=== PATIENT | female | born 1945 | race Caucasian/White ===

== ENCOUNTER 2016-10-04 14:18 | Emergency (ER) | payer MEDICARE ==
[~2016-10-04] VITALS: Ht 157.5 cm; Wt 46.4 kg
[~2016-10-04 14:18] MED LIST: AMBI5TAB PO; DICY1TAB26 PO; METO50CR PO; RALO1TAB PO; SUCR1TAB PO; SUMA25; ZANT300T PO; ZOFR4TAB3 SL
[2016-10-04 14:41] VITALS: BP 119/72; PULSE 88; RESP 16; TEMP 99; O2SAT 100
[2016-10-04] MEDS ORDERED: METO50TA11 PO (14:52)
[2016-10-04] MEDS ORDERED: RALO1TAB PO (14:52)
[2016-10-04] MEDS ORDERED: OMEP20TA PO (14:52)
[2016-10-04] MEDS ORDERED: SODIUM CHLOR 0.9% 1000 ML INJ 1,000 ML IV ONE (14:58)
[2016-10-04] MEDS ORDERED: ONDANSETRON HCL 4 MG/2 ML VIAL IVP ONE (15:00)
[2016-10-04] MEDS: SODIUM CHLORIDE 0.9% FLUSH 10 ML FLUSH IVF PRN ×2 (15:20→16:19)
[2016-10-04 15:22] LABS: BLOOD, URINE TRACE (NEG); GLUCOSE,URINE NEG (NEG); KETONE, URINE NEG (NEG); NITRITE,URINE NEG (NEG); PH, URINE 5.5 (5.0-8.5)
[2016-10-04 15:29] LABS: METHOD OF COLLECTION CLEAN CATCH; URINE COLOR YELLOW (YELLW/STRAW)
[2016-10-04 15:30] LABS: RBC, URINE 0-3 /hpf (0-3); WBC, URINE 0-2 /hpf (0-5)
[2016-10-04 15:31] LABS: COMMENT (UR) CULT NOT INDICATED; CULTURE IF INDICATED CULT NOT INDICATED
[2016-10-04 15:35] LABS: POTASSIUM 3.6 MEQ/L (3.5-5.1)
[2016-10-04 15:37] LABS: BICARBONATE 27.8 MEQ/L (21.0-32.0)
[2016-10-04] MEDS ORDERED: ZOFR4TAB3 SL (16:04)
--- NOTE | 2016-10-04 16:04 | PD ---
HPI . Diarrhea and vomiting Chief Complaint: Cold / Flu Symptoms Time Seen by Provider: 14:58 Travel History International Travel<30 days: No Contact w/Intl Traveler<30days: No Traveled to known affect area: No History of Present Illness HPI Patient presents with the acute onset of diarrhea followed by vomiting. This started today. She denies abdominal pain. She denies fever. She denies urinary tract symptoms. [id number]: GI system DURATION: Less than 12 hours TIMING: Started with diarrhea followed by vomiting ASSOCIATED SYMPTOMS: No associated fever, pain or urinary tract symptoms PFSH Past Medical History Heart Rhythm Problems: Yes (palpitations,pvc's,psvt's) Cardiovascular Problems: Yes (PALPITATION) Diabetes: No Endocrine: No Gastrointestinal Disorders: Yes (ABDOMINAL PAIN ,IBS) GERD: Yes (acid reflux) Genitourinary: Yes Hepatitis: No Hiatal Hernia: No Hypertension: No Immune Disorder: No Kidney Stones: Yes Musculoskeletal: No Neurologic: No Psychiatric: No Reproductive: No Respiratory: Yes (SOB AMBULATING.) Thyroid Disease: No Influenza Vaccination: Yes ?: Not Menopausal: Yes : 1 Para: 1 Past Surgical History Abdominal Surgery: Yes (COLONOSCOPY,CHOLECYSTOMY) Appendectomy: Yes Cardiac Surgery: No Section: Yes (x1) Cholecystectomy: Yes Ear Surgery: No Endocrine Surgery: No Eye Surgery: No Genitourinary Surgery: Yes Gynecologic Surgery: No Pacemaker: No Thoracic Surgery: No Tonsillectomy: Yes Other Surgery: Yes Social History Alcohol Use: Yes (occas. wine) Tobacco Use: No Substance Use: No Allergies-Medications (Allergen,Severity, Reaction): Coded Allergies: Epinephrine (Unverified Allergy, Severe, SEIZURES, 10/04/16) Lidocaine (Unverified Allergy, Intermediate, severe palpitations/anxiety, 10/09/14) Percocet (Verified Allergy, Mild, FEELING OF RACING, 10/04/16) Uncoded Allergies: septocane (Allergy, Severe, severe palitations/anxiety, 10/09/14) Reported Meds & Prescriptions Reported Meds & Active Scripts Active Zofran Odt (Ondansetron Odt) 4 Mg Tab 4 Mg SL Q6HR PRN Reported Omeprazole 20 Mg Tab 20 Mg PO DAILY Raloxifene (Raloxifene HCl) 60 Mg Tab 60 Mg PO DAILY Metoprolol Succinate ER 24 HR (Metoprolol Succinate) 50 Mg Tab 50 Mg PO DAILY Review of Systems Except as stated in HPI: all other systems reviewed are Neg General / Constitutional: No: Fever, Chills Gastrointestinal: Positive: Nausea, Vomiting, Diarrhea, No: Abdominal Pain Genitourinary: No: Urgency, Frequency, Dysuria Physical Exam Narrative GENERAL: Healthy-appearing woman in no acute distress. SKIN: Warm and dry. Good turgor. HEAD: Atraumatic. Normocephalic. EYES: Pupils equal and round. Extraocular movements are intact. ENT: No nasal bleeding or discharge. Mucous membranes pink and moist. NECK: Trachea midline. Neck is supple. CARDIOVASCULAR: Regular rate and rhythm. Heart sounds are normal. RESPIRATORY: No accessory muscle use. Lungs are clear with full air movement throughout. GASTROINTESTINAL: Abdomen soft, non-tender, nondistended. MUSCULOSKELETAL: No obvious deformities. No edema. NEUROLOGICAL: Awake and alert. No obvious cranial nerve deficits. Motor grossly within normal limits. Normal speech. PSYCHIATRIC: Appropriate mood and affect; insight and judgment normal. Data Data Last Documented VS Vital Signs Date Time Temp Pulse Resp B/P Pulse Ox O2 Delivery O2 Flow Rate FiO2 10/04/16 16:47 84 18 117/63 97 Room Air 10/04/16 14:41 99.0 Orders Complete Blood Count With Diff (10/04/16 14:58) Basic Metabolic Panel (Bmp) (10/04/16 14:58) Urinalysis - C+S If Indicated (10/04/16 14:58) Iv Access Insert/Monitor (10/04/16 14:58) Ondansetron Inj (Zofran Inj) (10/04/16 15:00) Sodium Chlor 0.9% 1000 Ml Inj (Ns 1000 M (10/04/16 14:58) Sodium Chloride 0.9% Flush (Ns Flush) (10/04/16 15:00) Ct Abd/Pel W/O Iv Contrast (10/04/16 16:06) Morphine Inj (Morphine Inj) (10/04/16 16:15) Labs Laboratory Tests Test 10/04/16 10/04/16 15:10 15:14 Urine Collection Type CLEAN CATCH Urine Color YELLOW Urine Turbidity CLEAR Urine pH 5.5 Urine Specific [place] 1.022 Urine Protein NEG mg/dL Urine Glucose (UA) NEG mg/dL Urine Ketones NEG mg/dL Urine Occult Blood TRACE Urine Nitrite NEG Urine Bilirubin NEG Urine Leukocyte Esterase TRACE Urine RBC 0-3 /hpf Urine WBC 0-2 /hpf Urine Squamous Epithelial 6-8 /hpf Cells Microscopic Urinalysis Comment CULT NOT INDICATED Urine Collection Time 15:10 White Blood Count 6.6 TH/MM3 Red Blood Count 4.55 MIL/MM3 Hemoglobin 12.8 GM/DL Hematocrit 39.2 % Mean Corpuscular Volume 86.0 FL Mean Corpuscular Hemoglobin 28.0 PG Mean Corpuscular Hemoglobin 32.5 % Concent Red Cell Distribution Width 14.4 % Platelet Count 158 TH/MM3 Mean Platelet Volume 9.3 FL Neutrophils (%) (Auto) 96.1 % Lymphocytes (%) (Auto) 3.4 % Monocytes (%) (Auto) 0.1 % Eosinophils (%) (Auto) 0.2 % Basophils (%) (Auto) 0.2 % Neutrophils # (Auto) 6.4 TH/MM3 Lymphocytes # (Auto) 0.2 TH/MM3 Monocytes # (Auto) 0.0 TH/MM3 Eosinophils # (Auto) 0.0 TH/MM3 Basophils # (Auto) 0.0 TH/MM3 CBC Comment DIFF FINAL Differential Comment Sodium Level 140 MEQ/L Potassium Level 3.6 MEQ/L Chloride Level 103 MEQ/L Carbon Dioxide Level 27.8 MEQ/L Anion Gap 9 MEQ/L Blood Urea Nitrogen 19 MG/DL Creatinine 0.68 MG/DL Estimat Glomerular Filtration 86 ML/MIN Rate Random Glucose 119 MG/DL Calcium Level 8.7 MG/DL [facility] Medical Decision Making Medical Screen Exam Complete: Yes Emergency Medical Condition: Yes Differential Diagnosis Differential diagnosis includes but is not limited to viral gastritis, food poisoning, pancreatitis, pneumonia, hepatitis, acute coronary syndrome, Narrative Course Patient presents with diarrhea followed by vomiting. Onset was today. She appears well-hydrated. 4:08 PM I went back to check on the patient and she now complains of the onset of left flank pain. I have ordered a CT of her abdomen to look for kidney stone. CT scan was negative. Diagnosis Primary Impression: Gastroenteritis Additional Impression: Left flank pain Referrals: JANA MENESES M.D. (PCP) call for appointment Patient Instructions: Gastroenteritis (DC), General Instructions Departure Forms: Tests/Procedures Med/Other Pt SpecificInfo: Prescription(s) given Scripts Ondansetron Odt (Zofran Odt)4 Mg Tab4 Mg SL Q6HR PRN (Nausea/Vomiting) #30 TAB Ref 0 Prov:Jordana Albarado MD 10/04/16 Disposition: 01 DISCHARGE HOME Condition: Stable Jordana Albarado MD Oct 04, 2016 16:04
[2016-10-04] MEDS ORDERED: MORPHINE SULFATE 4 MG/ML INJ IV ONE (16:15)
[2016-10-04 16:35] LABS: AUTOMATED NEUTROPHIL # 6.4 TH/MM3 (1.8-7.7); BASOPHIL % 0.2 % (0.0-2.0); EOSINOPHIL % 0.2 % (0.0-4.0); HEMATOCRIT 39.2 % (35.0-46.0); HEMO FLAGS DIFF FINAL; LYMPH % 3.4 % (9.0-44.0); LYMPHOCYTE # 0.2 TH/MM3 (1.0-4.8); MEAN CORPUSCULAR HGB CONC 32.5 % (32.0-36.0); MONO % 0.1 % (0.0-8.0); NEUT % 96.1 % (16.0-70.0); PLATELET COUNT 158 TH/MM3 (150-450); RED BLOOD COUNT 4.55 MIL/MM3 (4.00-5.30); RED CELL DISTRIBUTION WIDTH 14.4 % (11.6-17.2); WHITE BLOOD COUNT 6.6 TH/MM3 (4.0-11.0)
--- NOTE | 2016-10-04 16:44 | RADHPO ---
EXAM DATE/TIME: 10/04/2016 16:19 [facility] COMPARISON: No previous studies available for comparison. INDICATIONS : Left flank pain. ORAL CONTRAST: No oral contrast ingested. RADIATION DOSE: 4.86 CTDIvol (mGy) MEDICAL HISTORY : Renal calculi. SURGICAL HISTORY : Appendectomy. Cholecystectomy. section.Tonsillectomy ENCOUNTER: Initial ACUITY: 1 month PAIN SCALE: 6/10 LOCATION: Left flank TECHNIQUE: Volumetric scanning of the abdomen and pelvis was performed. Using automated exposure control and ad justment of the mA and/or kV according to patient size, radiation dose was kept as low as reasonably achievable to obtain optimal diagnostic quality images. FINDINGS: LOWER LUNGS: The visualized lower lungs are clear. LIVER: Homogeneous density without lesion. There is no dilation of the biliary tree. Prior cholecystectomy. SPLEEN: Normal size without lesion. PANCREAS: Within normal limits. KIDNEYS: Normal in size and shape. There is no mass, stone, or hydronephrosis. ADRENAL GLANDS: Within normal limits. VASCULAR: There is no aortic aneurysm. BOWEL/MESENTERY: The stomach, small bowel, and colon demonstrate no acute abnormality. There is no free intraperitone al air or fluid. ABDOMINAL WALL: Within normal limits. RETROPERITONEUM: There is no lymphadenopathy. BLADDER: No wall thickening or mass. REPRODUCTIVE: Within normal limits. INGUINAL: There is no lymphadenopathy or hernia. MUSCULOSKELETAL: Within normal limits for patient age. CONCLUSION: Normal examination. Roney Nichole Jr., MD on October 04, 2016 at 16:34 Board Certified Radiologist. This report was verified electronically.
[2016-10-04 16:47] VITALS: BP 117/63; PULSE 84; RESP 18; O2SAT 97
== END 2016-10-04 17:13 | disposition home or self-care (01) ==
LOC: PHED 14:18
DX: K52.9 Noninfective gastroenteritis and colitis, unspecified (principal)
CPT/HCPCS: 74176; 80048; 81001; 85025; 96361; 96374; 96375; 99284; J2270; J2405; J7030

== ENCOUNTER → 2016-10-18 | Outpatient (CLI) | payer MEDICARE ==
[~2016-10-18] MED LIST changes: -AMBI5TAB PO; -DICY1TAB26 PO; -METO50CR PO; +METO50TA11 PO; +OMEP20TA PO; -SUCR1TAB PO; -SUMA25; -ZANT300T PO
[2016-10-18 09:53] LABS: ALKALINE PHOSPHATASE 82 U/L (45-117); ALT (GPT) 15 U/L (10-53); ANION GAP 5 MEQ/L (5-15); AST (GOT) 19 U/L (15-37); BICARBONATE 32.4 MEQ/L (21.0-32.0); BLOOD UREA NITROGEN 13 MG/DL (7-18); CHLORIDE 103 MEQ/L (98-107); GLOMERULAR FILTRATION RATE 93 ML/MIN (>89); GLUCOSE,FASTING 83 MG/DL (74-99); HDL CHOLESTEROL 69.2 MG/DL (40.0-60.0); LDL CHOLESTEROL 98 MG/DL (0-99); POTASSIUM 4.6 MEQ/L (3.5-5.1); SODIUM (NA) 140 MEQ/L (136-145); TOTAL BILIRUBIN ADULT 0.4 MG/DL (0.2-1.0)
== END ==
LOC: PLAB 07:07
PROVIDERS: ATTEND Family Medicine
DX: Z00.00 Encounter for general adult medical examination without abnormal findings (principal); E55.9 Vitamin D deficiency, unspecified; R73.09 Other abnormal glucose; Z13.6 Encounter for screening for cardiovascular disorders; R10.9 Unspecified abdominal pain; R03.0 Elevated blood-pressure reading, without diagnosis of hypertension
CPT/HCPCS: 36415; 80053; 80061; 82306

== ENCOUNTER 2017-04-09 20:25 | Observation (INO) | payer MEDICARE ==
[~2017-04-09] VITALS: Ht 157.5 cm; Wt 48.9 kg
[~2017-04-09 20:25] MED LIST changes: +PROPOFOL 200 MG/20 ML AMP IV ONE
[2017-04-09 20:39] VITALS: BP 142/66; PULSE 83; RESP 20; TEMP 98.2; O2SAT 99
[2017-04-09] MEDS ORDERED: SODIUM CHLORIDE 0.9% FLUSH 10 ML FLUSH IVF PRN ×2 (21:00→23:00)
[2017-04-09] MEDS ORDERED: METOCLOPRAMIDE HCL 10 MG/2 ML VIAL IV PUSH ONE (21:00)
--- NOTE | 2017-04-09 21:06 | PD ---
HPI Chief Complaint: Pain: Acute or Chronic Time Seen by Provider: 20:52 Travel History International Travel<30 days: No Contact w/Intl Traveler<30days: No Traveled to known affect area: No History of Present Illness HPI 71-year-old female presents to the emergency department for complaint of nausea and regurgitation with mid retrosternal chest pain. Patient states this afternoon while preparing to go to dinner she noticed some discomfort in her chest and mild eating a small amount at dinner started noticing increasing pain develop nausea and vomited recently ingested food. Patient continues to have sensation of needing to vomit or regurgitate. Patient continues to have ongoing abdominal pain and chest pain. Patient reports that she underwent endoscopy [address] Yee requiring esophageal stricture dilatation. Patient has done well since that time. Patient's had no recent weight loss. Patient does have history of palpitations/SVT for which she is prescribed metoprolol has had no issues with this recently. Patient rates discomfort as moderate previously was severe. No referred neck jaw back shoulder arm pain. No shortness of breath no sweats. No hematemesis no coffee-ground emesis. No generalized abdominal pain. No flank pain or mid sternal pain. Patient has ability to swallow saliva. PFSH Past Medical History Narrative Medical Esophageal stricture with dilatation, irritable bowel syndrome, GERD, palpitations/SVT, kidney stones; appendectomy cholecystectomy melanoma excision tonsillectomy colonoscopy and upper endoscopy; no tobacco use occasional alcohol use or nursing notes reviewed Heart Rhythm Problems: Yes (palpitations,pvc's,psvt's) Cardiovascular Problems: Yes Diabetes: No Endocrine: No Gastrointestinal Disorders: Yes (ABDOMINAL PAIN ,IBS) GERD: Yes (acid reflux) Genitourinary: Yes Hepatitis: No Hiatal Hernia: No Hypertension: No Immune Disorder: No Kidney Stones: Yes Musculoskeletal: No Neurologic: No Psychiatric: No Reproductive: No Respiratory: Yes (SOB AMBULATING.) Thyroid Disease: No Menopausal: Yes : 1 Para: 1 Past Surgical History Abdominal Surgery: Yes (COLONOSCOPY,CHOLECYSTOMY) Appendectomy: Yes Cardiac Surgery: No Section: Yes (x1) Cholecystectomy: Yes Ear Surgery: No Endocrine Surgery: No Eye Surgery: No Genitourinary Surgery: Yes Gynecologic Surgery: No Pacemaker: No Thoracic Surgery: No Tonsillectomy: Yes Other Surgery: Yes Social History Alcohol Use: Yes (occas. wine) Tobacco Use: No Substance Use: No Allergies-Medications (Allergen,Severity, Reaction): Coded Allergies: epinephrine (Unverified Allergy, Severe, SEIZURES, 04/09/17) lidocaine (Unverified Allergy, Intermediate, severe palpitations/anxiety, 04/09/17) acetaminophen (Unverified Allergy, Mild, FEELING OF RACING, 04/09/17) oxycodone (Unverified Allergy, Mild, FEELING OF RACING, 04/09/17) Uncoded Allergies: septocane (Allergy, Severe, severe palitations/anxiety, 10/09/14) Reported Meds & Prescriptions Reported Meds & Active Scripts Active Zofran Odt (Ondansetron Odt) 4 Mg Tab 4 Mg SL Q6HR PRN Reported Omeprazole 20 Mg Tab 20 Mg PO DAILY Raloxifene (Raloxifene HCl) 60 Mg Tab 60 Mg PO DAILY Metoprolol Succinate ER 24 HR (Metoprolol Succinate) 50 Mg Tab 50 Mg PO DAILY Review of Systems Except as stated in HPI: all other systems reviewed are Neg General / Constitutional: No: Fever, Chills HENT: No: Congestion Cardiovascular: Positive: Chest Pain or Discomfort, Dyspnea on exertion, No: Diaphoresis, Syncope Respiratory: No: Cough, Shortness of Breath, Wheezing Gastrointestinal: Positive: Nausea, Vomiting, Abdominal Pain (epigastric), No: Diarrhea Genitourinary: No: Flank Pain Musculoskeletal: No: Pain Skin: No Rash Neurologic: No: Weakness Psychiatric: Positive: Anxiety (acetaminophen every) Endocrine: No: Heat Intolerance Hematologic/Lymphatic: No: Easy Bruising Physical Exam Narrative GENERAL: An elderly female in no acute respiratory distress with intermittent retching SKIN: Warm and dry. HEAD: Normocephalic. EYES: No scleral icterus. No injection or drainage. NECK: Supple, trachea midline. No JVD or lymphadenopathy. CARDIOVASCULAR: Regular rate and rhythm without murmurs, gallops, or rubs. RESPIRATORY: Breath sounds equal bilaterally. No accessory muscle use. GASTROINTESTINAL: Abdomen soft, non-tender, nondistended. MUSCULOSKELETAL: No cyanosis, or edema. BACK: Nontender without obvious deformity. No CVA tenderness. Data Data Last Documented VS Vital Signs Date Time Temp Pulse Resp B/P (MAP) Pulse Ox O2 Delivery O2 Flow Rate FiO2 04/09/17 21:25 87 18 160/78 (105) 99 Room Air 04/09/17 20:39 98.2 Orders Orders Complete Blood Count With Diff (04/09/17 20:56) Basic Metabolic Panel (Bmp) (04/09/17 20:56) Act Partial Throm Time (Ptt) (04/09/17 20:56) Prothrombin Time / Inr (Pt) (04/09/17 20:56) Troponin I (04/09/17 20:56) Iv Access Insert/Monitor (04/09/17 20:56) Electrocardiogram (04/09/17 20:56) Ecg Monitoring (04/09/17 20:56) Oximetry (04/09/17 20:56) Oxygen Administration (04/09/17 20:56) Chest, Single Ap (04/09/17 20:56) Sodium Chloride 0.9% Flush (Ns Flush) (04/09/17 21:00) Metoclopramide Inj (Reglan Inj) (04/09/17 21:00) Sodium Chlor 0.9% 1000 Ml Inj (Ns 1000 M (04/09/17 21:00) Labs Laboratory Tests Test 04/09/17 21:30 White Blood Count 4.8 TH/MM3 Red Blood Count 4.28 MIL/MM3 Hemoglobin 11.9 GM/DL Hematocrit 36.3 % Mean Corpuscular Volume 84.7 FL Mean Corpuscular Hemoglobin 27.9 PG Mean Corpuscular Hemoglobin Concent 32.9 % Red Cell Distribution Width 13.6 % Platelet Count 177 TH/MM3 Mean Platelet Volume 8.5 FL Neutrophils (%) (Auto) 59.8 % Lymphocytes (%) (Auto) 32.5 % Monocytes (%) (Auto) 5.7 % Eosinophils (%) (Auto) 1.1 % Basophils (%) (Auto) 0.9 % Neutrophils # (Auto) 2.8 TH/MM3 Lymphocytes # (Auto) 1.6 TH/MM3 Monocytes # (Auto) 0.3 TH/MM3 Eosinophils # (Auto) 0.1 TH/MM3 Basophils # (Auto) 0.0 TH/MM3 CBC Comment DIFF FINAL Differential Comment MDM Medical Decision Making Medical Screen Exam Complete: Yes Emergency Medical Condition: Yes Medical Record Reviewed: Yes Differential Diagnosis Esophageal stricture, retained fluid bolus, chest pain, ACS, VT, pancreatitis, peptic ulcer disease, viscus perforation unlikely Boerhaave's consider [facility]- [place] Narrative Course Patient placed on monitor pulse oximetry IV access obtained resulting EKG performed sinus rhythm rate of [address] elevation or injury pattern change noted marked baseline artifact present Patient administered Reglan 5 mg IV and maintenance normal saline at 100 cc per hour @ 21:50 asymptomatic Physician Communication Physician Communication call placed to GI Diagnosis Primary Impression: Retching Additional Impression: History of esophageal stricture Damaris Maldonado MD Apr 09, 2017 21:06
[2017-04-09 21:25] VITALS: BP 160/78; PULSE 87; RESP 18; O2SAT 99
[2017-04-09] MEDS: SODIUM CHLOR 0.9% 1000 ML INJ 1,000 ML IV SCH (21:38)
[2017-04-09 21:45] LABS: AUTOMATED NEUTROPHIL # 2.8 TH/MM3 (1.8-7.7); BASOPHIL % 0.9 % (0.0-2.0); EOSINOPHIL # 0.1 TH/MM3 (0-0.4); EOSINOPHIL % 1.1 % (0.0-4.0); HEMATOCRIT 36.3 % (35.0-46.0); HEMO FLAGS DIFF FINAL; LYMPH % 32.5 % (9.0-44.0); LYMPHOCYTE # 1.6 TH/MM3 (1.0-4.8); MEAN CELL VOLUME 84.7 FL (80.0-100.0); MEAN CORPUSCULAR HEMOGLOBIN 27.9 PG (27.0-34.0); MEAN CORPUSCULAR HGB CONC 32.9 % (32.0-36.0); MONO % 5.7 % (0.0-8.0); NEUT % 59.8 % (16.0-70.0); PLATELET COUNT 177 TH/MM3 (150-450); RED BLOOD COUNT 4.28 MIL/MM3 (4.00-5.30); RED CELL DISTRIBUTION WIDTH 13.6 % (11.6-17.2); WHITE BLOOD COUNT 4.8 TH/MM3 (4.0-11.0)
[2017-04-09 21:54] LABS: CHLORIDE 104 MEQ/L (98-107); POTASSIUM 3.1 MEQ/L (3.5-5.1); SODIUM (NA) 140 MEQ/L (136-145)
[2017-04-09 21:57] LABS: ANION GAP 6 MEQ/L (5-15); BICARBONATE 29.6 MEQ/L (21.0-32.0); BLOOD UREA NITROGEN 12 MG/DL (7-18)
[2017-04-09 21:58] LABS: APTT (PATIENT) 24.7 SEC (24.3-30.1); PROTHROMBIN TIME - PATIENT 10.7 SEC (9.8-11.6)
[2017-04-09 22:00] LABS: GLOMERULAR FILTRATION RATE 93 ML/MIN (>89)
[2017-04-09 22:10] VITALS: BP 153/78; PULSE 87; RESP 18; O2SAT 100
[2017-04-09] MEDS ORDERED: POTASSIUM CHLOR 10 MEQ PREMIX 100 ML IV ONE (22:45)
[2017-04-09] MEDS ORDERED: NALOXONE HCL 0.4 MG/ML AMP IV PUSH PRN (23:00)
[2017-04-09] MEDS ORDERED: SODIUM CHLORIDE 0.9% FLUSH 10 ML FLUSH IV FLUSH PRN (23:00)
--- NOTE | 2017-04-09 23:11 | RADRPT ---
EXAM DATE/TIME: 04/09/2017 21:23 [facility] COMPARISON: No previous studies available for comparison. INDICATIONS : Chest tightness and difficulty swallowing today. MEDICAL HISTORY : None. SURGICAL HISTORY : None. ENCOUNTER: Initial ACUITY: 1 day PAIN SCORE: 3/10 LOCATION: Bilateral chest FINDINGS: A single view of the chest demonstrates the lungs to be symmetrically aerated without evidence of mas s, infiltrate or effusion. The cardiomediastinal contours are unremarkable. Osseous structures are intact. Peripherally calcified breast implants are present. Clips are seen in the right quadrant the abdomen. CONCLUSION: No acute disease. Alan Buckner MD on April 09, 2017 at 23:08 Board Certified Radiologist. This report was verified electronically.
[2017-04-10] VITALS (7 sets, daily range): BP systolic 119–145; BP diastolic 65–82; PULSE 67–74; RESP 16–20; TEMP 97.9–98.4; O2SAT 96–100
[2017-04-10] MEDS ORDERED: VITA1000 PO (00:36)
[2017-04-10] MEDS: SODIUM CHLOR 0.9% 1000 ML INJ 1,000 ML IV SCH (00:58)
[2017-04-10] MEDS ORDERED: METOPROLOL SUCCINATE 50 MG EXTENDED RELEASE TAB PO ONE (03:00)
[2017-04-10 04:28] LABS: CREATINE KINASE 100 U/L (26-192)
[2017-04-10 06:57] LABS: AUTOMATED NEUTROPHIL # 2.3 TH/MM3 (1.8-7.7); BASOPHIL % 0.6 % (0.0-2.0); EOSINOPHIL # 0.1 TH/MM3 (0-0.4); EOSINOPHIL % 1.9 % (0.0-4.0); HEMATOCRIT 31.9 % (35.0-46.0); HEMO FLAGS DIFF FINAL; LYMPH % 36.9 % (9.0-44.0); LYMPHOCYTE # 1.5 TH/MM3 (1.0-4.8); MEAN CELL VOLUME 84.7 FL (80.0-100.0); MEAN CORPUSCULAR HEMOGLOBIN 27.8 PG (27.0-34.0); MEAN CORPUSCULAR HGB CONC 32.9 % (32.0-36.0); MONO % 6.3 % (0.0-8.0); NEUT % 54.3 % (16.0-70.0); PLATELET COUNT 151 TH/MM3 (150-450); RED BLOOD COUNT 3.77 MIL/MM3 (4.00-5.30); RED CELL DISTRIBUTION WIDTH 13.9 % (11.6-17.2); WHITE BLOOD COUNT 4.2 TH/MM3 (4.0-11.0)
[2017-04-10 07:05] LABS: POTASSIUM 3.9 MEQ/L (3.5-5.1)
[2017-04-10 07:12] LABS: BICARBONATE 28.6 MEQ/L (21.0-32.0)
[2017-04-10] MEDS ORDERED: SODIUM CHLORIDE 0.9% FLUSH 10 ML FLUSH IV FLUSH SCH ×2 (09:00)
[2017-04-10] MEDS ORDERED: CHOLECALCIFEROL (VIT D3) 1000 UNIT TAB PO SCH (09:00)
[2017-04-10] MEDS ORDERED: PANTOPRAZOLE SOD 20 MG DELAYED RELEASE TAB PO SCH (09:00)
[2017-04-10] MEDS ORDERED: RALOXIFENE HCL 60 MG TAB PO SCH (09:00)
--- NOTE | 2017-04-10 09:49 | EKG ---
Date Performed: 04/10/2017 Time Performed: 08:45:17 PTAGE: 71 years EKG: Sinus rhythm NORMAL ECG PREVIOUS TRACING : 04/10/2017 04.15 DOCTOR: Parminder Fagan Interpretating Date/Time 04/10/2017 09:48:37
--- NOTE | 2017-04-10 09:58 | EKG ---
Date Performed: 04/10/2017 Time Performed: 04:15:43 PTAGE: 71 years EKG: Sinus rhythm NORMAL ECG PREVIOUS TRACING : 04/09/2017 21.01 DOCTOR: Parminder Fagan Interpretating Date/Time 04/10/2017 09:58:24
[2017-04-10 10:05] LABS: CREATINE KINASE 94 U/L (26-192)
--- NOTE | 2017-04-10 10:17 | EKG ---
Date Performed: 04/09/2017 Time Performed: 21:01:54 PTAGE: 71 years EKG: Sinus rhythm BORDERLINE ECG PREVIOUS TRACING : 10/05/1994 10.24 DOCTOR: Parminder Fagan Interpretating Date/Time 04/10/2017 10:17:19
--- NOTE | 2017-04-10 10:58 | PD.CONS ---
HPI History of Present Illness This is a 71 year old female well-known to our service from prior encounters with known history of esophageal stricture and esophageal dilation who apparently was doing well up until yesterday when she felt some chest discomfort this was followed by a feeling of inability to swallow the patient does have some history of acid reflux apparently well controlled on omeprazole daily she did have a prior esophageal dilation in the recent past and has done well on omeprazole as far as controlling her acid reflux but she does report taking Advil about twice a week to help with aches and pains and headaches otherwise she is doing well she also reports to me that she lost her in January and she has had a little bit of stress but felt like she was handling her loss well [facility] Past Medical History Esophageal stricture with dilatation, irritable bowel syndrome, GERD, palpitations/SVT, kidney stones; Past Surgical History appendectomy cholecystectomy melanoma excision tonsillectomy colonoscopy and upper endoscopy; Coded Allergies: epinephrine (Unverified Allergy, Severe, SEIZURES, 04/09/17) lidocaine (Unverified Allergy, Intermediate, severe palpitations/anxiety, 04/09/17) acetaminophen (Unverified Allergy, Mild, FEELING OF RACING, 04/09/17) oxycodone (Unverified Allergy, Mild, FEELING OF RACING, 04/09/17) Uncoded Allergies: septocane (Allergy, Severe, severe palitations/anxiety, 10/09/14) Medications Omeprazole 20 Mg Tab 20 Mg PO DAILY Raloxifene (Raloxifene HCl) 60 Mg Tab 60 Mg PO DAILY Metoprolol Succinate ER 24 HR (Metoprolol Succinate) 50 Mg Tab 50 Mg PO DAILY Family History Noncontributory Social History Occasional alcohol use but no tobacco use Review of Systems ROS Review of systems Patient denies any headache dizziness blurry vision, denies any chest pain shortness of breath cough fever chills, Denies any palpitations or fatigue denies any polyuria dysuria hematuria, denies any numbness tingling or weakness, denies any skin rash pruritus or jaundice, denies any easy bruising or bleeding tendency, denies any recent change in mood GI Exam Vitals I&O Vital Signs Date Time Temp Pulse Resp B/P (MAP) Pulse Ox O2 Delivery O2 Flow Rate FiO2 04/10/17 08:00 98.4 71 19 145/77 (99) 98 04/10/17 07:30 97 21 04/10/17 04:00 98.0 67 20 119/65 (83) 96 04/10/17 03:00 98 21 04/10/17 00:00 98.0 74 20 128/77 (94) 98 04/09/17 22:10 87 18 153/78 (103) 100 Room Air 04/09/17 21:25 87 18 160/78 (105) 99 Room Air 04/09/17 21:01 24 04/09/17 20:39 98.2 83 20 142/66 (91) 99 I/O 04/09/17 04/09/17 04/09/17 04/10/17 04/10/17 04/10/17 07:00 15:00 23:00 07:00 15:00 23:00 Intake Total 150 ml 647 ml Balance 150 ml 647 ml Intake Oral 150 ml 0 ml IV Total 647 ml # Voids 3 Imaging Last Impressions Chest X-Ray 04/09/172055 Signed Impressions: Service Date/Time: Sunday, April 09, 2017 21:23 - CONCLUSION: No acute disease. Alan Buckner MD Laboratory Test 04/09/17 21:30 04/10/17 03:25 04/10/17 06:00 04/10/17 09:00 White Blood Count 4.8 TH/MM3 4.2 TH/MM3 Red Blood Count 4.28 MIL/MM3 3.77 MIL/MM3 Hemoglobin 11.9 GM/DL 10.5 GM/DL Hematocrit 36.3 % 31.9 % Mean Corpuscular Volume 84.7 FL 84.7 FL Mean Corpuscular Hemoglobin 27.9 PG 27.8 PG Mean Corpuscular Hemoglobin Concent 32.9 % 32.9 % Red Cell Distribution Width 13.6 % 13.9 % Platelet Count 177 TH/MM3 151 TH/MM3 Mean Platelet Volume 8.5 FL 8.6 FL Neutrophils (%) (Auto) 59.8 % 54.3 % Lymphocytes (%) (Auto) 32.5 % 36.9 % Monocytes (%) (Auto) 5.7 % 6.3 % Eosinophils (%) (Auto) 1.1 % 1.9 % Basophils (%) (Auto) 0.9 % 0.6 % Neutrophils # (Auto) 2.8 TH/MM3 2.3 TH/MM3 Lymphocytes # (Auto) 1.6 TH/MM3 1.5 TH/MM3 Monocytes # (Auto) 0.3 TH/MM3 0.3 TH/MM3 Eosinophils # (Auto) 0.1 TH/MM3 0.1 TH/MM3 Basophils # (Auto) 0.0 TH/MM3 0.0 TH/MM3 CBC Comment DIFF FINAL DIFF FINAL Differential Comment Prothrombin Time 10.7 SEC Prothromb Time International Ratio 1.0 RATIO Activated Partial Thromboplast Time 24.7 SEC Blood Urea Nitrogen 12 MG/DL 9 MG/DL Creatinine 0.63 MG/DL 0.56 MG/DL Random Glucose 88 MG/DL 91 MG/DL Calcium Level 8.4 MG/DL 8.0 MG/DL Sodium Level 140 MEQ/L 142 MEQ/L Potassium Level 3.1 MEQ/L 3.9 MEQ/L Chloride Level 104 MEQ/L 109 MEQ/L Carbon Dioxide Level 29.6 MEQ/L 28.6 MEQ/L Anion Gap 6 MEQ/L 4 MEQ/L Estimat Glomerular Filtration Rate 93 ML/MIN 107 ML/MIN Troponin I LESS THAN 0.02 NG/ML LESS THAN 0.02 NG/ML LESS THAN 0.02 NG/ML Total Creatine Kinase 100 U/L 94 U/L Physical Examination HEENT: Pupils round and reactive to light; normocephalic; atraumatic; no jaundice. Throat is clear. NECK: Neck is supple, no JVD, no lymphadenopathy. CHEST: Chest is clear to auscultation and percussion. CARDIAC: Regular rate and rhythm with no murmur gallop or rubs. ABDOMEN: Soft, nondistended, nontender; no hepatosplenomegaly; bowel sounds are present in all four quadrants. EXTREMITIES: No clubbing, cyanosis, or edema. SKIN: Normal; no rash; no jaundice. 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 Assessment and Plan Plan Atypical chest pain with normal EKG and known history of reflux and esophageal stricture with complaints of some dysphagia and known NSAID use Patient is advised an EGD with possible dilation Agree with current supportive care Khari Masterson MD Apr 10, 2017 10:58
[2017-04-10] MEDS ORDERED: LACTATED RINGER'S 1000 ML INJ 1,000 ML ONE (11:54)
--- NOTE | 2017-04-10 12:00 | PD.PROCEDR ---
GI Procedure REFERRING PHYSICIAN [place] PROCEDURE PERFORMED EGD with biopsy INDICATION FOR PROCEDURE Dysphagia, reflux, atypical chest pain PROCEDURE: The procedure, risks and benefits were discussed with Ms. Infante and informed consent was obtained. Anesthesia sedated her with Diprivan. She was placed in the left lateral decubitus position. EGD: The Pentax videoscope was introduced through the oropharynx and advanced to the second portion of the duodenum under direct visualization. Retroflexion was performed in the stomach. FINDINGS: The esophagus this appeared to be unremarkable normal limits random biopsies were taken from the distal esophagus The stomach this too was unremarkable and within normal limits The duodenum this too was unremarkable and within normal limits ESTIMATED BLOOD LOSS: None SPECIMENS REMOVED: Esophageal biopsies COMPLICATIONS: None IMPRESSION: Normal EGD PLAN: Await biopsies Advanced diet Follow-up with GI post discharge Khari Masterson MD Apr 10, 2017 12:00
--- NOTE | 2017-04-10 14:10 | HHI.HP ---
[facility] Chantell Ca M.D. Admission Diagnosis chest pain; esophageal stricture; hypokalemia Diagnoses: Travel History International Travel<30 Days: No Contact w/Intl Traveler <30 Da: No Traveled to Known Affected Are: No History of Present Illness This is a pleasant 71 year-old female with past medical history of esophageal stricture, palpitations on metoprolol who presented to the ER last night complaining of epigastric pain, chest discomfort and vomiting. The patient states that yesterday afternoon she started to get some chest discomfort. Several hours later she went out to dinner and after eating several bites of right she started to feel like the food was getting stuck and she could not swallow associated with nausea and severe sharp chest pain. She ran to the bathroom or she vomited once and after that had numerous dry heaves. She presented to the ER where her symptoms improved. This morning she underwent EGD which was normal. She does have a history of endoscopy [address] Yee and had an esophageal stricture with dilation at that time. The patient also has reflux and takes a PPI. The patient denies history of coronary artery disease, tobacco use, hypertension or hyperlipidemia. No family history of coronary artery disease. She sees Dr. Suarez for the palpitations. The patient is physically active. Last normal stress test 2 years ago. She states her recently . Review of Systems Constitutional: DENIES: Fever, Chills Ears, nose, mouth, throat: DENIES: Odynophagia Respiratory: DENIES: Cough, Shortness of breath Cardiovascular: COMPLAINS OF: Chest pain, Palpitations, DENIES: Syncope, Dyspnea on Exertion, Lower Extremity Edema Gastrointestinal: COMPLAINS OF: Nausea, Vomiting Genitourinary: DENIES: Dysuria, Nocturia Musculoskeletal: DENIES: Back pain, Neck pain Integumentary: DENIES: Pruritus, Rash Neurologic: DENIES: Abnormal gait, Headache Psychiatric: DENIES: Anxiety, Confusion Past Family Social History Past Medical History Esophageal stricture with dilatation, irritable bowel syndrome, GERD, palpitations/SVT, kidney stones Past Surgical History appendectomy cholecystectomy melanoma excision tonsillectomy colonoscopy and upper endoscopy Reported Medications Allergies Coded Allergies Type Severity Reaction Last Updated Verified epinephrine Allergy Severe SEIZURES 04/09/17 No lidocaine Allergy Intermediate severe palpitations/anxiety 04/09/17 No acetaminophen Allergy Mild FEELING OF RACING 04/09/17 No oxycodone Allergy Mild FEELING OF RACING 04/09/17 No Uncoded Allergies Type Severity Reaction Last Updated Verified septocane Allergy Severe severe palitations/anxiety 10/09/14 Active Scripts Medications Dose Route/Sig Max Daily Dose Days Date Category Vitamin D-1000 (Cholecalciferol) 1,000 Unit Tab 2,000 Units PO DAILY 04/10/17 Reported Zofran Odt (Ondansetron Odt) 4 Mg Tab 4 Mg SL Q6HR PRN 10/04/16 Rx Omeprazole 20 Mg Tab 20 Mg PO DAILY 10/04/16 Reported Raloxifene (Raloxifene HCl) 60 Mg Tab 60 Mg PO DAILY 10/04/16 Reported Metoprolol Succinate ER 24 HR (Metoprolol Succinate) 50 Mg Tab 50 Mg PO DAILY 10/04/16 Reported Allergies: Coded Allergies: epinephrine (Unverified Allergy, Severe, SEIZURES, 04/09/17) lidocaine (Unverified Allergy, Intermediate, severe palpitations/anxiety, 04/09/17) acetaminophen (Unverified Allergy, Mild, FEELING OF RACING, 04/09/17) oxycodone (Unverified Allergy, Mild, FEELING OF RACING, 04/09/17) Uncoded Allergies: septocane (Allergy, Severe, severe palitations/anxiety, 10/09/14) Family History Noncontributory Social History Occasional alcohol use but no tobacco use Physical Exam Vital Signs Vital Signs Date Time Temp Pulse Resp B/P (MAP) Pulse Ox O2 Delivery O2 Flow Rate FiO2 04/10/17 12:20 67 16 145/82 (103) 100 04/10/17 12:10 97.9 76 14 137/75 (95) 97 04/10/17 11:04 97.0 72 16 174/97 (122) 100 04/10/17 08:00 98.4 71 19 145/77 (99) 98 04/10/17 07:30 97 21 04/10/17 04:00 98.0 67 20 119/65 (83) 96 04/10/17 03:00 98 21 04/10/17 00:00 98.0 74 20 128/77 (94) 98 04/09/17 22:10 87 18 153/78 (103) 100 Room Air 04/09/17 21:25 87 18 160/78 (105) 99 Room Air 04/09/17 21:01 24 04/09/17 20:39 98.2 83 20 142/66 (91) 99 Physical Exam GENERAL: Well-nourished, well-developed lean pleasant female patient. SKIN: Warm and dry. HEAD: Normocephalic. EYES: No scleral icterus. No injection or drainage. NECK: Supple, trachea midline. No JVD or lymphadenopathy. CARDIOVASCULAR: Regular rate and rhythm without murmurs, gallops, or rubs. RESPIRATORY: Breath sounds equal bilaterally. No accessory muscle use. GASTROINTESTINAL: Abdomen soft, non-tender, nondistended. EXTREMITIES: No cyanosis, or edema. NEUROLOGICAL: Awake, alert, and oriented x 3. Non-focal. Laboratory Laboratory Tests Test 04/09/17 21:30 04/10/17 03:25 04/10/17 06:00 04/10/17 09:00 White Blood Count 4.8 4.2 Red Blood Count 4.28 3.77 Hemoglobin 11.9 10.5 Hematocrit 36.3 31.9 Mean Corpuscular Volume 84.7 84.7 Mean Corpuscular Hemoglobin 27.9 27.8 Mean Corpuscular Hemoglobin Concent 32.9 32.9 Red Cell Distribution Width 13.6 13.9 Platelet Count 177 151 Mean Platelet Volume 8.5 8.6 Neutrophils (%) (Auto) 59.8 54.3 Lymphocytes (%) (Auto) 32.5 36.9 Monocytes (%) (Auto) 5.7 6.3 Eosinophils (%) (Auto) 1.1 1.9 Basophils (%) (Auto) 0.9 0.6 Neutrophils # (Auto) 2.8 2.3 Lymphocytes # (Auto) 1.6 1.5 Monocytes # (Auto) 0.3 0.3 Eosinophils # (Auto) 0.1 0.1 Basophils # (Auto) 0.0 0.0 CBC Comment DIFF FINAL DIFF FINAL Differential Comment Prothrombin Time 10.7 Prothromb Time International Ratio 1.0 Activated Partial Thromboplast Time 24.7 Blood Urea Nitrogen 12 9 Creatinine 0.63 0.56 Random Glucose 88 91 Calcium Level 8.4 8.0 Sodium Level 140 142 Potassium Level 3.1 3.9 Chloride Level 104 109 Carbon Dioxide Level 29.6 28.6 Anion Gap 6 4 Estimat Glomerular Filtration Rate 93 107 Troponin I LESS THAN 0.02 LESS THAN 0.02 LESS THAN 0.02 Total Creatine Kinase 100 94 Result Diagram: 04/10/1759904/10/17599 Imaging Last Impressions Chest X-Ray 04/09/172055 Signed Impressions: Service Date/Time: Sunday, April 09, 2017 21:23 - CONCLUSION: No acute disease. MD Jose Acuna VTE Risk Assessment [place] VTE Risk Assessment: No/Low Risk (score <= 1) Caprini Risk Assessment Model Point Value = 1 Point Value = 2 Point Value = 3 Point Value = 5 Age 41-60 Minor surgery BMI > 25 kg/m2 Swollen legs Varicose veins or History of unexplained or recurrent spontaneous Oral contraceptives or hormone replacement Sepsis (< 1 month) Serious lung disease, including pneumonia (< 1 month) Abnormal pulmonary function Acute myocardial infarction Congestive heart failure (< 1 month) History of inflammatory bowel disease Medical patient at bed rest Age 61-74 Arthroscopic surgery Major open surgery (> 45 min) Laparoscopic surgery (> 45 min) Malignancy Confined to bed (> 72 hours) Immobilizing plaster cast Central venous access Age >= 75 History of VTE Family history of VTE Factor V Leiden Prothrombin [id number] Lupus anticoagulant Anticardiolipin antibodies Elevated serum homocysteine Heparin-induced thrombocytopenia Other congenital or acquired thrombophilia Stroke (< 1 month) Elective arthroplasty Hip, pelvis, or leg fracture Acute spinal cord injury (< 1 month) Prophylaxis Regimen Total Risk Factor Score Risk Level Prophylaxis Regimen 0-1 Low Early ambulation 2 Moderate Order ONE of the following: *Sequential Compression Device (SCD) *Heparin 5000 units SQ BID 3-4 Higher Order ONE of the following medications: *Heparin 5000 units SQ TID *Enoxaparin/Lovenox 40 mg SQ daily (WT < 150 kg, CrCl > 30 mL/min) *Enoxaparin/Lovenox 30 mg SQ daily (WT < 150 kg, CrCl > 10-29 mL/min) *Enoxaparin/Lovenox 30 mg SQ BID (WT < 150 kg, CrCl > 30 mL/min) AND/OR *Sequential Compression Device (SCD) 5 or more Highest Order ONE of the following medications: *Heparin 5000 units SQ TID (Preferred with Epidurals) *Enoxaparin/Lovenox 40 mg SQ daily (WT < 150 kg, CrCl > 30 mL/min) *Enoxaparin/Lovenox 30 mg SQ daily (WT < 150 kg, CrCl > 10-29 mL/min) *Enoxaparin/Lovenox 30 mg SQ BID (WT < 150 kg, CrCl > 30 mL/min) AND *Sequential Compression Device (SCD) Assessment and Plan Assessment and Plan -Chest discomfort associated with vomiting - patient with history of esophageal stricture. She underwent EGD this morning which was normal. Chest pain resolved last night. Troponins and EKGs were negative. Patient has no risk factors for cardiac disease other than age. She leads a healthy lifestyle, has never smoked. No family history. She had a negative stress test 2 years ago with her pattern duplicator Dr. demetra jhaveri. I offered the patient a stress test however at this point time she prefers to go home. I did recommend she take a baby aspirin a day for cardioprotection and she is agreeable to this. I also recommended she follow-up with her pattern duplicator Dr. Solano in 2 weeks and that she is to return to the ER immediately should she develop any recurrent chest pain. Patient understands the plan and is agreeable. Rachel Garcia MD Apr 10, 2017 14:10
[2017-04-10] MEDS ORDERED: ASPI-110 PO (14:12)
[2017-04-10] MEDS ORDERED: METOPROLOL SUCCINATE 50 MG EXTENDED RELEASE TAB PO SCH (21:00)
== END 2017-04-10 14:45 | disposition home or self-care (01) ==
LOC: PHED 20:25 → PHEDA 22:57 → PH5A 04-10 00:28
PROVIDERS: ADMIT Family Medicine; ATTEND Family Medicine
DX: R07.89 Other chest pain (principal); E87.6 Hypokalemia; K22.2 Esophageal obstruction; R10.13 Epigastric pain; R00.2 Palpitations; R11.2 Nausea with vomiting, unspecified; K21.9 Gastro-esophageal reflux disease without esophagitis; K58.9 Irritable bowel syndrome, unspecified; Z79.899 Other long term (current) drug therapy
CPT/HCPCS: 00740; 43239; 71010; 80048; 82550; 84484; 85025; 85610; 85730; 88305; 93005; 96361; 96365; 96375; 99285; G0378; J2765; J3480; J7030; J7120

== ENCOUNTER → 2017-06-03 | Outpatient (CLI) | payer MEDICARE ==
[~2017-06-03] MED LIST changes: +ASPI1TAB57 PO; +METO1TAB9 PO; -METO50TA11 PO; -OMEP20TA PO; +OMEP20TA93 PO; -PROPOFOL 200 MG/20 ML AMP IV ONE; +VITA1000 PO
[2017-06-03 13:32] LABS: ANION GAP 5 MEQ/L (5-15); AST (GOT) 25 U/L (15-37); BICARBONATE 29.1 MEQ/L (21.0-32.0); BLOOD UREA NITROGEN 16 MG/DL (7-18); CHLORIDE 106 MEQ/L (98-107); GLOMERULAR FILTRATION RATE 89 ML/MIN (>89); GLUCOSE,FASTING 95 MG/DL (74-99); POTASSIUM 4.5 MEQ/L (3.5-5.1); SODIUM (NA) 140 MEQ/L (136-145)
[2017-06-03 13:33] LABS: ALT (GPT) 18 U/L (10-53)
[2017-06-03 13:35] LABS: ALKALINE PHOSPHATASE 74 U/L (45-117); LDL CHOLESTEROL 111 MG/DL (0-99); TOTAL BILIRUBIN ADULT 0.5 MG/DL (0.2-1.0)
[2017-06-03 13:45] LABS: AUTOMATED NEUTROPHIL # 2.9 TH/MM3 (1.8-7.7); EOSINOPHIL # 0.1 TH/MM3 (0-0.4); EOSINOPHIL % 1.1 % (0.0-4.0); HEMO FLAGS DIFF FINAL; LYMPH % 28.2 % (9.0-44.0); LYMPHOCYTE # 1.3 TH/MM3 (1.0-4.8); MEAN CELL VOLUME 87.6 FL (80.0-100.0); MEAN CORPUSCULAR HEMOGLOBIN 28.8 PG (27.0-34.0); MEAN CORPUSCULAR HGB CONC 32.9 % (32.0-36.0); MONO % 5.9 % (0.0-8.0); NEUT % 63.8 % (16.0-70.0); PLATELET COUNT 189 TH/MM3 (150-450); RED BLOOD COUNT 4.34 MIL/MM3 (4.00-5.30); RED CELL DISTRIBUTION WIDTH 14.7 % (11.6-17.2); WHITE BLOOD COUNT 4.6 TH/MM3 (4.0-11.0)
== END ==
LOC: PLAB 09:59
PROVIDERS: ATTEND Family Medicine
DX: R07.9 Chest pain, unspecified (principal); A04.72 Enterocolitis due to Clostridium difficile, not specified as recurrent; K22.2 Esophageal obstruction; R73.09 Other abnormal glucose; R79.89 Other specified abnormal findings of blood chemistry; R03.0 Elevated blood-pressure reading, without diagnosis of hypertension; R13.10 Dysphagia, unspecified; Z13.6 Encounter for screening for cardiovascular disorders
CPT/HCPCS: 36415; 80053; 80061; 85025

== ENCOUNTER 2017-11-30 12:16 | Emergency (ER) | payer MEDICARE ==
[~2017-11-30] VITALS: Ht 154.9 cm; Wt 47.6 kg
[2017-11-30 12:20] VITALS: BP 150/87; PULSE 76; RESP 16; TEMP 99.1; O2SAT 99
[2017-11-30] MEDS ORDERED: BIOTCAP PO (12:46)
[2017-11-30] MEDS ORDERED: RANI1TAB7 PO (12:46)
[2017-11-30] MEDS ORDERED: VITA10002 PO (12:46)
[2017-11-30] MEDS ORDERED: SODIUM CHLOR 0.9% 1000 ML INJ 1,000 ML IV SCH (13:00)
[2017-11-30] MEDS ORDERED: ONDANSETRON ODT 4 MG TAB PO ONE (13:00)
[2017-11-30 13:10] VITALS: BP 125/63; PULSE 72; RESP 18; O2SAT 98
[2017-11-30 13:14] LABS: AUTOMATED NEUTROPHIL # 3.9 TH/MM3 (1.8-7.7); BASOPHIL % 0.4 % (0.0-2.0); EOSINOPHIL % 0.6 % (0.0-4.0); HEMATOCRIT 38.7 % (35.0-46.0); HEMOGLOBIN 12.6 GM/DL (11.6-15.3); LYMPH % 12.1 % (9.0-44.0); LYMPHOCYTE # 0.6 TH/MM3 (1.0-4.8); MEAN CELL VOLUME 86.6 FL (80.0-100.0); MEAN CORPUSCULAR HEMOGLOBIN 28.2 PG (27.0-34.0); MEAN CORPUSCULAR HGB CONC 32.6 % (32.0-36.0); MEAN PLATELET VOLUME 8.8 FL (7.0-11.0); MONO % 3.3 % (0.0-8.0); MONOCYTE # 0.2 TH/MM3 (0-0.9); NEUT % 83.6 % (16.0-70.0); PLATELET COUNT 156 TH/MM3 (150-450); RED BLOOD COUNT 4.47 MIL/MM3 (4.00-5.30); RED CELL DISTRIBUTION WIDTH 14.1 % (11.6-17.2); WHITE BLOOD COUNT 4.7 TH/MM3 (4.0-11.0)
[2017-11-30 13:16] LABS: BILIRUBIN, URINE NEG (NEG); BLOOD, URINE SMALL (NEG); GLUCOSE,URINE NEG (NEG); KETONE, URINE TRACE mg/dL (NEG); NITRITE,URINE NEG (NEG); PH, URINE 5.5 (5.0-8.5); URINE COLOR YELLOW (YELLW/STRAW); URINE LEUKOCYTE ESTERASE NEG (NEG)
--- NOTE | 2017-11-30 13:19 | PD ---
HPI Chief Complaint: GI Complaint Time Seen by Provider: 12:27 Travel History International Travel<30 days: No Contact w/Intl Traveler<30days: No Traveled to known affect area: No History of Present Illness HPI 72-year-old female complains of abdominal pain, nausea vomiting diarrhea. Patient states that she has intermittent abdominal cramping with nausea vomiting 3 days ago. Patient states the diarrhea started yesterday. Patient states that she feeling lightheadedness and dizziness today. Patient denies any headache. Patient denies any chest pain or shortness of breath. Patient states abdominal pain and cramping pain intermittent pain diffuse of the abdomen. Patient denies any pain radiation. Patient denies any fever chills. Patient denies any dysuria frequency. Patient denies any back pain. Patient has history of SVT. Patient is on metoprolol. PFSH Past Medical History Heart Rhythm Problems: Yes (palpitations,pvc's,psvt's) Cancer: Yes (MELANOMA EXICISION) Cardiovascular Problems: Yes Diabetes: No Diminished Hearing: No Endocrine: No Gastrointestinal Disorders: Yes (ABDOMINAL PAIN ,IBS) GERD: Yes Genitourinary: Yes Hepatitis: No Hiatal Hernia: No Hypertension: Yes Immune Disorder: No Kidney Stones: Yes Musculoskeletal: Yes Neurologic: No Psychiatric: No Reproductive: No Respiratory: Yes Immunizations Current: Yes Thyroid Disease: No Tetanus Vaccination: Unknown Influenza Vaccination: Yes ?: Not Menopausal: Yes : 1 Para: 1 Past Surgical History Abdominal Surgery: Yes Appendectomy: Yes Cardiac Surgery: No Section: Yes (x1) Cholecystectomy: Yes Ear Surgery: No Endocrine Surgery: No Eye Surgery: No Genitourinary Surgery: Yes Gynecologic Surgery: Yes (C SECTION) Oral Surgery: Yes (TONSILLECTOMY) Pacemaker: No Thoracic Surgery: No Tonsillectomy: Yes Other Surgery: Yes (BREAST AUG) Social History Alcohol Use: Yes (occas. wine) Tobacco Use: No Substance Use: No Allergies-Medications (Allergen,Severity, Reaction): Coded Allergies: epinephrine (Unverified Allergy, Severe, SEIZURES, 11/30/17) lidocaine (Unverified Allergy, Intermediate, severe palpitations/anxiety, 11/30/17) acetaminophen (Unverified Allergy, Mild, FEELING OF RACING, 04/09/17) oxycodone (Unverified Allergy, Mild, FEELING OF RACING, 04/09/17) Uncoded Allergies: septocane (Allergy, Severe, severe palitations/anxiety, 10/09/14) Reported Meds & Prescriptions Reported Meds & Active Scripts Active Reported Vitamin B-12 (Cyanocobalamin) 1,000 Mcg Tab 1,000 Mcg PO DAILY Biotin 5 Mg Cap 5 Mg PO DAILY Ranitidine Maximum Strength (Ranitidine HCl) 150 Mg Tab 150 Mg PO BID Raloxifene (Raloxifene HCl) 60 Mg Tab 60 Mg PO DAILY Metoprolol Succinate ER 24 HR (Metoprolol Succinate) 50 Mg Tab 50 Mg PO DAILY Review of Systems General / Constitutional: No: Fever Eyes: No: Visual changes HENT: No: Headaches Cardiovascular: No: Chest Pain or Discomfort Respiratory: No: Shortness of Breath Gastrointestinal: Positive: Nausea, Vomiting, Diarrhea, Abdominal Pain Genitourinary: No: Dysuria Musculoskeletal: No: Pain Skin: No Rash Neurologic: No: Weakness Psychiatric: No: Depression Endocrine: No: Polydipsia Hematologic/Lymphatic: No: Easy Bruising Physical Exam Narrative GENERAL: Well-nourished, well-developed patient. SKIN: Focused skin assessment warm/dry. HEAD: Normocephalic. EYES: No scleral icterus. No injection or drainage. NECK: Supple, trachea midline. No JVD or lymphadenopathy. CARDIOVASCULAR: Regular rate and rhythm without murmurs, gallops, or rubs. RESPIRATORY: Breath sounds equal bilaterally. No accessory muscle use. GASTROINTESTINAL: Abdomen soft, nondistended. Patient has moderate diffuse tenderness over the abdomen. No rebound tenderness. No mass. MUSCULOSKELETAL: No cyanosis, or edema. BACK: Nontender without obvious deformity. No CVA tenderness. Neurologic exam normal. Data Data Last Documented VS Vital Signs Date Time Temp Pulse Resp B/P (MAP) Pulse Ox O2 Delivery O2 Flow Rate FiO2 11/30/17 15:03 72 18 117/66 (83) 98 Room Air 11/30/17 12:20 99.1 Orders Orders Complete Blood Count With Diff (11/30/17 12:45) Comprehensive Metabolic Panel (11/30/17 12:45) Lipase (11/30/17 12:45) Urinalysis - C+S If Indicated (11/30/17 12:45) Ct Abd/Pel W Iv Contrast(Rout) (11/30/17 12:45) Iv Access Insert/Monitor (11/30/17 12:45) Ecg Monitoring (11/30/17 12:45) Oximetry (11/30/17 12:45) Sodium Chlor 0.9% 1000 Ml Inj (Ns 1000 M (11/30/17 13:00) Ondansetron Odt (Zofran Odt) (11/30/17 13:00) Iohexol 350 Inj (Omnipaque 350 Inj) (11/30/17 14:30) Labs Laboratory Tests Test 11/30/17 13:00 White Blood Count 4.7 TH/MM3 Red Blood Count 4.47 MIL/MM3 Hemoglobin 12.6 GM/DL Hematocrit 38.7 % Mean Corpuscular Volume 86.6 FL Mean Corpuscular Hemoglobin 28.2 PG Mean Corpuscular Hemoglobin Concent 32.6 % Red Cell Distribution Width 14.1 % Platelet Count 156 TH/MM3 Mean Platelet Volume 8.8 FL Neutrophils (%) (Auto) 83.6 % Lymphocytes (%) (Auto) 12.1 % Monocytes (%) (Auto) 3.3 % Eosinophils (%) (Auto) 0.6 % Basophils (%) (Auto) 0.4 % Neutrophils # (Auto) 3.9 TH/MM3 Lymphocytes # (Auto) 0.6 TH/MM3 Monocytes # (Auto) 0.2 TH/MM3 Eosinophils # (Auto) 0.0 TH/MM3 Basophils # (Auto) 0.0 TH/MM3 CBC Comment DIFF FINAL Differential Comment Urine Collection Type VOIDED Urine Color YELLOW Urine Turbidity CLEAR Urine pH 5.5 Urine Specific [place] GREATER/EQUAL 1.030 Urine Protein NEG mg/dL Urine Glucose (UA) NEG mg/dL Urine Ketones TRACE mg/dL Urine Occult Blood SMALL Urine Nitrite NEG Urine Bilirubin NEG Urine Urobilinogen 0.2 MG/DL Urine Leukocyte Esterase NEG Urine RBC 0-3 /hpf Urine WBC 0-2 /hpf Urine Squamous Epithelial Cells 4-6 /hpf Urine Mucus RARE /lpf Microscopic Urinalysis Comment CULT NOT INDICATED Blood Urea Nitrogen 12 MG/DL Creatinine 0.56 MG/DL Random Glucose 111 MG/DL Total Protein 6.9 GM/DL Albumin 3.5 GM/DL Calcium Level 8.6 MG/DL Alkaline Phosphatase 78 U/L Aspartate Amino Transf (AST/SGOT) 24 U/L Alanine Aminotransferase (ALT/SGPT) 16 U/L Total Bilirubin 0.6 MG/DL Sodium Level 139 MEQ/L Potassium Level 3.7 MEQ/L Chloride Level 106 MEQ/L Carbon Dioxide Level 26.7 MEQ/L Anion Gap 6 MEQ/L Estimat Glomerular Filtration Rate 107 ML/MIN Lipase 155 U/L [facility] Medical Decision Making Medical Screen Exam Complete: Yes Emergency Medical Condition: Yes Interpretation(s) 1353 PM. CBC within normal limits. CMP within normal limits. UA negative. 1618 p.m. Last Impressions Abdomen/Pelvis CT 11/30/17 1245 Signed Impressions: CONCLUSION: 1. Nonspecific bowel gas pattern with fluid-filled loops of nondilated small b owel without inflammatory change, obstruction, free air, or free fluid. 2. 4 mm low-density lesion involving the tail the pancreas. This is poorly clemente racterize given its small size. A follow-up outpatient MRI of the pancreas is s uggested to further characterize this lesion. 3. 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 Clinical evalu ation for any signs of pelvic congestion syndrome suggested. 4. Prior cholecystectomy. 5. Bilateral renal and splenic cysts. Differential Diagnosis Differential diagnosis including gastroenteritis, gastritis, PUD, pancreatitis, cholecystitis, colitis, UTI, pyelonephritis, nephrolithiasis. Narrative Course 72-year-old female with abdominal pain, nausea vomiting diarrhea. Normal saline solution 100 cc an hour. Zofran 4 mg ODT. Diagnosis Primary Impression: Gastroenteritis Patient Instructions: General Instructions Additional Instructions: Zofran as needed for nausea vomiting. Clear fluid tonight and advance diet tomorrow. Follow-up with personal physician. Return if persistent problem or worse. Med/Other Pt SpecificInfo: Prescription(s) given Scripts Ondansetron Odt (Zofran Odt) 4 Mg Tab 4 MG SL Q6HR Y for Nausea/Vomiting, #10 TAB 0 Refills Prov: Victor M Conley MD 11/30/17 Disposition: 01 DISCHARGE HOME Condition: Stable Victor M Conley MD November 30, 2017 13:19
[2017-11-30 13:23] LABS: MUCUS URINE RARE /lpf (OCC)
[2017-11-30 13:24] LABS: CHLORIDE 106 MEQ/L (98-107); RBC, URINE 0-3 /hpf (0-3); SODIUM (NA) 139 MEQ/L (136-145); WBC, URINE 0-2 /hpf (0-5)
[2017-11-30 13:27] LABS: CALCIUM 8.6 MG/DL (8.5-10.1)
[2017-11-30 13:28] LABS: ALBUMIN 3.5 GM/DL (3.4-5.0); BICARBONATE 26.7 MEQ/L (21.0-32.0); BLOOD UREA NITROGEN 12 MG/DL (7-18); GLUCOSE,RANDOM 111 MG/DL (74-106)
[2017-11-30 13:30] LABS: ALT (GPT) 16 U/L (10-53); AST (GOT) 24 U/L (15-37)
[2017-11-30 13:31] LABS: CREATININE 0.56 MG/DL (0.50-1.00); GLOMERULAR FILTRATION RATE 107 ML/MIN (>89)
[2017-11-30 13:32] LABS: TOTAL BILIRUBIN ADULT 0.6 MG/DL (0.2-1.0); TOTAL PROTEIN 6.9 GM/DL (6.4-8.2)
[2017-11-30 13:33] LABS: ALKALINE PHOSPHATASE 78 U/L (45-117)
[2017-11-30] MEDS ORDERED: IOHEXOL 350 MG/ML 10 ML VIAL (for RAD DIAG) IVCONTRAST ONE (14:30)
[2017-11-30 15:03] VITALS: BP 117/66; PULSE 72; RESP 18; O2SAT 98
--- NOTE | 2017-11-30 15:17 | RADRPT ---
EXAM DATE: 11/30/2017 2:43 PM EDT AGE/SEX: 72 years / Female INDICATIONS: Lower abdomen pain with nausea, vomiting and diarrhea for three days. CLINICAL DATA: This is the patient's initial encounter. Patient reports that signs and symptoms have been present for 3 days and indicates a pain score of 6/10. MEDICAL/SURGICAL HISTORY: Hypertension. Gastroesophageal reflux disease. Renal calculi. Appen dectomy. Cholecystectomy. section. ORAL CONTRAST: No oral contrast ingested. RADIATION DOSE: 4.94 CTDI (mGy) COMPARISON: CT abdomen and pelvis October 04, 2016, [facility]. TECHNIQUE: Multiple contiguous axial images were obtained through the abdomen and pelvis following b olus infusion of 94 ml Omnipaque 350 (iohexol) nonionic water-soluble contrast as a single exam dos e. No oral contrast ingested. Using automated exposure control and adjustment of the mA and/or kV ac cording to patient size, the radiation dose was kept as low as reasonably achievable to obtain optima l diagnostic quality images. FINDINGS: Lower Lungs: The visualized lower lungs are clear. Liver: The liver has a homogeneous density without space-occupying lesion. There is no dilation of th e biliary tree. Gallbladder is surgically absent. Spleen: Homogeneous density without enlargement. A tiny splenic cyst is seen laterally. This is unch anged. Pancreas: There is a 4 mm low-density lesion involving the tail the pancreas near its junction with the body. This projects just posterior to the pancreatic duct which is normal in caliber. It is too s mall to gain an accurate Hounsfield measurement. The remaining pancreas is unremarkable. This lesion is not seen on the prior study which may be a difference in technique due to the lack of IV contrast on the prior study.. Kidneys: Normal in size and shape. Bilateral renal cysts including peripelvic cysts. No evidence of mass or hydronephrosis. Adrenal Glands: Unremarkable. Aorta: The aorta and proximal iliac vessels are grossly unremarkable without aneurysmal dilation. Bowel/Mesentery: Fluid-filled loops of nondilated small bowel. No free air or free fluid. Stomach an d colon are unremarkable. No inflammatory change appreciated. A few scattered colonic diverticuli wit hin the sigmoid. Abdominal Wall: Intact. Retroperitoneum: No evidence of adenopathy in the retrocrural, para-aortic, or deep pelvic regions. Bladder: Contours are smooth. Reproductive Organs: Distended gonadal veins with varicosities involving the pelvis. No abnormal mas ses or calcifications seen. Inguinal: The inguinal region is unremarkable without evidence of adenopathy. Bony Structures: Unremarkable. CONCLUSION: 1. Nonspecific bowel gas pattern with fluid-filled loops of nondilated small bowel without inflammat ory change, obstruction, free air, or free fluid. 2. 4 mm low-density lesion involving the tail the pancreas. This is poorly characterize given its sm all size. A follow-up outpatient MRI of the pancreas is suggested to further characterize this lesion . 3. 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 Clinical evaluation for any signs of pelvic congestion syndrome suggested. 4. Prior cholecystectomy. 5. Bilateral renal and splenic cysts. Electronically signed by: Roney Nichole MD 11/30/2017 3:15 PM EDT
[2017-11-30] MEDS ORDERED: ZOFR4TAB3 SL (16:42)
[2017-11-30 17:09] VITALS: BP 114/61
== END 2017-11-30 17:16 | disposition home or self-care (01) ==
LOC: PHED 12:16
DX: K52.9 Noninfective gastroenteritis and colitis, unspecified (principal); I47.1 Supraventricular tachycardia; K21.9 Gastro-esophageal reflux disease without esophagitis; I10 Essential (primary) hypertension; Z85.820 Personal history of malignant melanoma of skin
CPT/HCPCS: 74177; 80053; 81001; 83690; 85025; 96360; 96361; 99284; J7030; Q9967